=== PATIENT | female | born 1965 | race Caucasian/White ===

== ENCOUNTER 2021-02-11 08:16 | Day surgery (SDC) | payer BC ==
[2021-02-08 12:50] VITALS: BMI 25.8
[2021-02-11 08:49] VITALS: TEMP 98
[2021-02-11] MEDS ORDERED: MIDAZOLAM HCL 2 MG/2 ML SINGLE DOSE VIAL ONE (09:37)
[2021-02-11] MEDS ORDERED: PROPOFOL 20 ML ONE ×2 (09:39→11:14)
[2021-02-11] MEDS ORDERED: LIDOCAINE HCL 1%, 10 MG/ML (20ML VIAL) ONE (10:46)
[2021-02-11] MEDS ORDERED: BUPIVACAINE HCL 50 ML ONE (10:46)
[2021-02-11] MEDS ORDERED: ceFAZolin SODIUM 1 GM VIAL ONE (10:53)
[2021-02-11] MEDS ORDERED: DEXAMETHASONE SOD PHOSPHATE 4 MG/1 ML VIAL ONE (10:57)
[2021-02-11] MEDS ORDERED: ONDANSETRON 4 MG/2 ML VIAL ONE (10:57)
[2021-02-11 12:26] VITALS: BP 122/61; PULSE 68
== END 2021-02-11 12:26 | disposition home or self-care (01) ==
LOC: FASU 08:16
PROVIDERS: ATTEND Orthopaedic Surgery
PROC: 0LB50ZZ Excision of Right Lower Arm and Wrist Tendon, Open Approach (ICD-10-PCS; principal; 2021-02-11 11:04)
DX: M67.431 Ganglion, right wrist (principal)
CPT/HCPCS: 88304-TC